=== PATIENT | female | born 1940 | race Hispanic/Latino ===

== ENCOUNTER 2022-08-31 07:35 | Outpatient (CLI) | payer MEDICARE, OTHER ==
[2022-08-31] MEDS ORDERED: Iopamidol 300 61% 100 ML VIAL FS ONE (10:32)
== END 2022-08-31 07:36 | disposition home or self-care (01) ==
LOC: CSHCT 07:35
PROVIDERS: ATTEND Family Medicine
DX: R63.4 Abnormal weight loss (principal); J90 Pleural effusion, not elsewhere classified; N28.1 Cyst of kidney, acquired; K57.30 Diverticulosis of large intestine without perforation or abscess without bleeding
CPT/HCPCS: 74177; 81001; 87086

== ENCOUNTER 2022-09-06 13:57 | Outpatient (CLI) | payer MEDICARE, OTHER | END 2022-09-06 13:58 | disposition home or self-care (01) | LOC: CSHMRI 13:57 | PROVIDERS: ATTEND Family Medicine | DX: G45.9 Transient cerebral ischemic attack, unspecified (principal); G93.9 Disorder of brain, unspecified | CPT/HCPCS: 70553 ==

== ENCOUNTER 2022-10-17 11:42 | Emergency (ER) | payer MEDICARE ==
[~2022-10-17 11:42] MED LIST: Iopamidol 300 61% 100 ML VIAL FS ONE
[2022-10-17 12:40] LABS: #Monocytes 0.9 10x3/uL (0.0-1.1); #Neutrophils 10.6 10x3/uL (1.5-8.4); %Basophils 0.2 % (0.0-2.0); %Eosinophils 0.1 % (0.0-6.0); %Lymphocytes 7.5 % (18.0-47.0); %Neutrophils 84.8 % (40.0-75.0); Hemoglobin 11.8 g/dL (12.0-15.5); Mean Corpuscular HGB CONC 32.9 g/dL (32.0-36.0); Mean Corpuscular Hemoglobin 31.9 pg (27.0-33.0); Mean Platelet Volume 11.1 fl (7.4-10.4); Platelet Count 214 10x3/uL (150-450); RBC Distribution Width 12.5 % (11.5-14.5); White Blood Cell (WBC) Count 12.6 10x3/uL (3.5-10.5)
[2022-10-17 12:53] LABS: ALT (SGPT) 66 U/L (8-55); AST (SGOT) 38 U/L (5-34); Alkaline Phosphatase 90 U/L (40-110); Anion Gap 13 mmol/L (10-20); BUN (Urea Nitrogen) 19 mg/dL (9.8-20.1); Bilirubin, Total 0.9 mg/dL (0.2-1.2); Calc. Creatinine Clearance 0 mL/min (70-130); Calcium 9.1 mg/dL (7.8-10.44); Carbon Dioxide 26 mmol/L (23-31); Chloride 102 mmol/L (98-107); Estimated GFR 60; Globulin 2.3 g/dL (2.4-3.5); Glucose 103 mg/dL (83-110); Lipase 28 U/L (8-78); Potassium 4.2 mmol/L (3.5-5.1); Protein, Total 6.3 g/dL (5.8-8.1); Sodium 137 mmol/L (136-145)
[2022-10-17 13:03] LABS: Clarity Cloudy (Clear)
[2022-10-17 13:04] LABS: Bilirubin Unable to Interpret (Negative); Blood, Urine Unable to Interpret (Negative); Glucose, Urine (Dipstick) Unable to Interpret mg/dL (Negative); Ketone, Urine Unable to Interpret mg/dL (Negative); Leukocyte Unable to Interpret (Negative); Nitrite Unable to Interpret (Negative); Protein, Urine (Dipstick) Unable to Interpret mg/dl (Neg-Trace); Urobilinogen UNABLE TO INTERPRET mg/dL (Less than 2)
[2022-10-17 13:06] LABS: pH, Urine 6.5 (5.0-9.0)
[2022-10-17 13:07] LABS: Specific Gravity, Urine 1.005 (1.005-1.030)
[2022-10-17 13:08] LABS: Bacteria/HPF None Seen HPF (None Seen); RBC/HPF Greater than 50 HPF (0-3); Squamous Epithelial 0-3 HPF (0-3); WBC/HPF 21-50 HPF (0-3)
[2022-10-17] MEDS ORDERED: Phenazopyridine HCl 95 MG TAB ONE (16:06)
[2022-10-17 16:52] LABS: Bilirubin Neg (Negative); Blood, Urine 250 (Negative); Clarity Cloudy (Clear); Glucose, Urine (Dipstick) Normal (Negative); Ketone, Urine 15 mg/dL (Negative); Leukocyte 500 (Negative); Nitrite Negative (Negative); Protein, Urine (Dipstick) 100 mg/dl (Neg-Trace); Urobilinogen Normal mg/dL (Less than 2)
== END 2022-10-17 18:09 | disposition home or self-care (01) ==
LOC: CSHERS 11:42
DX: N30.91 Cystitis, unspecified with hematuria (principal); E78.5 Hyperlipidemia, unspecified; E03.9 Hypothyroidism, unspecified; I10 Essential (primary) hypertension
CPT/HCPCS: 36415; 74177; 80053; 81003; 81015; 83605; 83690; 85025; 87086; Q9967

== ENCOUNTER 2023-08-18 23:04 | Emergency (ER) | payer MEDICARE, OTHER | END 2023-08-19 01:58 | disposition home or self-care (01) | LOC: CSHERS 23:04 | DX: T16.1XXA Foreign body in right ear, initial encounter (principal); E78.5 Hyperlipidemia, unspecified; I10 Essential (primary) hypertension; E03.9 Hypothyroidism, unspecified; Z79.899 Other long term (current) drug therapy; Z79.01 Long term (current) use of anticoagulants | CPT/HCPCS: 69200 ==